=== PATIENT | female | born 1980 | race Caucasian/White ===

== ENCOUNTER 2016-11-22 01:53 | Emergency (ER) | payer MEDICARE ==
[2012-03-10 01:10] VITALS: BMI 24.6
== END 2016-11-22 02:45 | disposition home or self-care (01) ==
LOC: D.ER 01:53
DX: L02.31 Cutaneous abscess of buttock (principal)

== ENCOUNTER 2017-02-23 15:48 | Emergency (ER) | payer MEDICARE ==
[2012-03-10 01:10] VITALS: BMI 24.6
== END 2017-02-23 16:08 | disposition home or self-care (01) ==
LOC: D.ER 15:48
DX: K12.0 Recurrent oral aphthae (principal); F17.200 Nicotine dependence, unspecified, uncomplicated

== ENCOUNTER 2017-04-26 14:40 | Emergency (ER) | payer MEDICARE ==
[2012-03-10 01:10] VITALS: BMI 24.6
== END 2017-04-26 15:43 | disposition home or self-care (01) ==
LOC: D.ER 14:40
DX: J06.9 Acute upper respiratory infection, unspecified (principal); R59.1 Generalized enlarged lymph nodes; F17.200 Nicotine dependence, unspecified, uncomplicated

== ENCOUNTER 2017-05-25 02:08 | Emergency (ER) | payer MEDICARE ==
[2012-03-10 01:10] VITALS: BMI 24.6
[2017-05-25 03:03] LABS: BASOPHILS 0.3 % (0-2); EOSINOPHILS 1.6 % (0-7); HEMATOCRIT 37.6 % (36.0-48.0); HEMOGLOBIN 12.8 g/dL (12-16); LYMPHOCYTES 31.8 % (15-50); MCH 30.8 pg (26.0-34.0); MCV 90.4 fL (80.0-100.0); MEAN PLATELET VOLUME 10.4 fL (7.4-10.4); MONOCYTES 9.7 % (2-11); NEUTROPHILS 56.6 % (40-80); PLATELET COUNT 275 10x3/uL (130-400); RBC 4.16 10x6/uL (4.00-5.40); RDW 13.5 % (11.5-14.5); WBC 6.7 10x3/uL (4.8-10.8)
[2017-05-25 03:17] LABS: ALBUMIN 4.2 g/dL (3.4-5.0); ALKALINE PHOSPHATASE 90 U/L (46-116); ALT (SGPT) 57 U/L (10-68); CALC OSMOLALITY 279 mosm/kg (275-300); CALCIUM 9.5 mg/dL (8.5-10.1); CARBON DIOXIDE 27.9 mmol/L (21.0-32.0); CHLORIDE - SERUM 100 mmol/L (98-107); CREATININE - SERUM 0.8 mg/dL (0.6-1.3); GLUCOSE 83 mg/dL (74-106); POTASSIUM - SERUM 3.6 mmol/L (3.5-5.1); PROTEIN - SERUM 7.7 g/dL (6.4-8.2); SODIUM 139 mmol/L (136-145); UREA NITROGEN 21 mg/dL (7-18); eGFR NON AFRICAN AMERICAN 86 mL/min (90-120)
== END 2017-05-25 06:21 | disposition home or self-care (01) ==
LOC: D.ER 02:08
PROVIDERS: Emergency Medicine
DX: G43.909 Migraine, unspecified, not intractable, without status migrainosus (principal); F17.200 Nicotine dependence, unspecified, uncomplicated

== ENCOUNTER 2017-05-28 11:03 | Emergency (ER) | payer MEDICARE ==
[2012-03-10 01:10] VITALS: BMI 24.6
[2017-05-28 12:09] LABS: BASOPHILS 0.3 % (0-2); EOSINOPHILS 1.5 % (0-7); HEMATOCRIT 36.7 % (36.0-48.0); HEMOGLOBIN 12.2 g/dL (12-16); IMMATURE GRANULOCYTES 0.2 % (0-5); LYMPHOCYTES 32.5 % (15-50); MCH 30.9 pg (26.0-34.0); MCHC 33.2 g/dL (31.0-37.0); MCV 92.9 fL (80.0-100.0); MEAN PLATELET VOLUME 10.2 fL (7.4-10.4); MONOCYTES 7.4 % (2-11); NEUTROPHILS 58.1 % (40-80); PLATELET COUNT 245 10x3/uL (130-400); RBC 3.95 10x6/uL (4.00-5.40); RDW 13.8 % (11.5-14.5); WBC 6.1 10x3/uL (4.8-10.8)
[2017-05-28 12:22] LABS: ALBUMIN 3.8 g/dL (3.4-5.0); ALKALINE PHOSPHATASE 104 U/L (46-116); ALT (SGPT) 49 U/L (10-68); BILIRUBIN - TOTAL 0.13 mg/dL (0.2-1.3); CALC OSMOLALITY 288 mosm/kg (275-300); CALCIUM 8.7 mg/dL (8.5-10.1); CARBON DIOXIDE 28.2 mmol/L (21.0-32.0); CHLORIDE - SERUM 109 mmol/L (98-107); CREATININE - SERUM 0.7 mg/dL (0.6-1.3); GLUCOSE 95 mg/dL (74-106); POTASSIUM - SERUM 3.2 mmol/L (3.5-5.1); PROTEIN - SERUM 7.2 g/dL (6.4-8.2); SODIUM 145 mmol/L (136-145); UREA NITROGEN 13 mg/dL (7-18); eGFR NON AFRICAN AMERICAN > 90 mL/min (90-120)
== END 2017-05-28 13:30 | disposition home or self-care (01) ==
LOC: D.ER 11:03
PROVIDERS: Family Medicine
DX: R51 Headache (principal)

== ENCOUNTER 2017-06-11 09:02 | Emergency (ER) | payer MEDICARE ==
[2012-03-10 01:10] VITALS: BMI 24.6
== END 2017-06-11 10:03 | disposition home or self-care (01) ==
LOC: D.ER 09:02
DX: K02.9 Dental caries, unspecified (principal); K08.89 Other specified disorders of teeth and supporting structures; F17.200 Nicotine dependence, unspecified, uncomplicated

== ENCOUNTER 2017-09-17 19:58 | Emergency (ER) | payer MEDICARE ==
[2012-03-10 01:10] VITALS: BMI 24.6
== END 2017-09-17 22:05 | disposition home or self-care (01) ==
LOC: D.ER 19:58
DX: J20.9 Acute bronchitis, unspecified (principal); J01.90 Acute sinusitis, unspecified; B00.1 Herpesviral vesicular dermatitis; F17.200 Nicotine dependence, unspecified, uncomplicated

== ENCOUNTER 2017-09-21 19:25 | Emergency (ER) | payer MEDICARE ==
[2012-03-10 01:10] VITALS: BMI 24.6
[2017-09-21 20:13] LABS: APPEARANCE CLEAR (CLEAR); BILIRUBIN NEGATIVE (NEGATIVE); COLOR YELLOW (YELLOW); GLUCOSE NEGATIVE (NEGATIVE); KETONE NEGATIVE (NEGATIVE); NITRITE NEGATIVE (NEGATIVE); PROTEIN NEGATIVE (NEGATIVE); SPECIFIC GRAVITY 1.015 (1.005-1.020); UROBILINOGEN NORMAL (NORMAL)
[2017-09-21 20:19] LABS: UDS - AMPHET NEGATIVE QUAL (NEGATIVE); UDS - BARB NEGATIVE QUAL (NEGATIVE); UDS - BENZO NEGATIVE QUAL (NEGATIVE); UDS - COCAINE NEGATIVE QUAL (NEGATIVE); UDS - OPIATE POSITIVE QUAL (NEGATIVE); UDS - PCP NEGATIVE QUAL (NEGATIVE); UDS - THC NEGATIVE QUAL (NEGATIVE)
[2017-09-21 20:36] LABS: BASOPHILS 0.2 % (0-2); HEMATOCRIT 36.2 % (36.0-48.0); HEMOGLOBIN 12.2 g/dL (12-16); IMMATURE GRANULOCYTES 0.1 % (0-5); LYMPHOCYTES 26.1 % (15-50); MCH 29.8 pg (26.0-34.0); MCHC 33.7 g/dL (31.0-37.0); MCV 88.3 fL (80.0-100.0); MEAN PLATELET VOLUME 10.1 fL (7.4-10.4); MONOCYTES 6.8 % (2-11); NEUTROPHILS 65.8 % (40-80); PLATELET COUNT 283 10x3/uL (130-400); RDW 14.2 % (11.5-14.5); WBC 9.9 10x3/uL (4.8-10.8)
[2017-09-21 21:26] LABS: HCG SERUM NEGATIVE (NEGATIVE)
[2017-09-21 21:30] LABS: ALBUMIN 3.9 g/dL (3.4-5.0); ALKALINE PHOSPHATASE 114 U/L (46-116); ALT (SGPT) 44 U/L (10-68); CALC OSMOLALITY 280 mosm/kg (275-300); CALCIUM 9.6 mg/dL (8.5-10.1); CARBON DIOXIDE 25.4 mmol/L (21.0-32.0); CHLORIDE - SERUM 106 mmol/L (98-107); CREATININE - SERUM 0.8 mg/dL (0.6-1.3); GLUCOSE 92 mg/dL (74-106); POTASSIUM - SERUM 3.9 mmol/L (3.5-5.1); PROTEIN - SERUM 7.9 g/dL (6.4-8.2); SODIUM 141 mmol/L (136-145); UREA NITROGEN 12 mg/dL (7-18); eGFR NON AFRICAN AMERICAN 86 mL/min (90-120)
== END 2017-09-21 22:30 | disposition home or self-care (01) ==
LOC: D.ER 19:25
PROVIDERS: Family Medicine
DX: J20.9 Acute bronchitis, unspecified (principal); B00.1 Herpesviral vesicular dermatitis; R59.1 Generalized enlarged lymph nodes; F17.200 Nicotine dependence, unspecified, uncomplicated

== ENCOUNTER 2018-12-19 01:02 | Emergency (ER) | payer MEDICARE ==
[~2018-12-19] VITALS: Ht 154.9 cm; Wt 73.6 kg
[2018-12-19 01:08] VITALS: Ht 154.9 cm; Wt 73.6 kg
[2018-12-19] MEDS ORDERED: TYLENOL W/CODEI1 TAB PO (01:49)
[2018-12-19] MEDS ORDERED: CLEOCIN HCL300 MG PO (01:49)
[2018-12-19 02:02] VITALS: BP 114/80
== END 2018-12-19 01:55 | disposition home or self-care (01) ==
LOC: D.ER 01:02
DX: K02.9 Dental caries, unspecified (principal); L73.9 Follicular disorder, unspecified; K05.10 Chronic gingivitis, plaque induced

== ENCOUNTER 2019-01-02 00:48 | Emergency (ER) | payer MEDICARE ==
[~2019-01-02] VITALS: Ht 154.9 cm; Wt 75.0 kg
[~2019-01-02 00:48] MED LIST: CLEOCIN HCL300 MG PO; TYLENOL W/CODEI1 TAB PO
[2019-01-02 01:05] VITALS: Ht 154.9 cm; Wt 75.0 kg
[2019-01-02] MEDS ORDERED: NAPROSYN500 MG PO (02:04)
[2019-01-02] MEDS ORDERED: AUGMENTIN 875-11 TAB PO (02:04)
[2019-01-02 02:10] VITALS: BP 119/88
== END 2019-01-02 02:18 | disposition home or self-care (01) ==
LOC: D.ER 00:48
DX: K04.7 Periapical abscess without sinus (principal)

== ENCOUNTER 2019-05-12 17:59 | Emergency (ER) | payer MEDICARE, MEDICAID ==
[~2019-05-12] VITALS: Ht 154.9 cm; Wt 66.4 kg
[~2019-05-12 17:59] MED LIST changes: +AUGMENTIN 875-11 TAB PO; +NAPROSYN500 MG PO
[2019-05-12 18:06] VITALS: Ht 154.9 cm; Wt 66.4 kg
[2019-05-12 20:35] VITALS: BP 110/69
== END 2019-05-12 20:35 | disposition home or self-care (01) ==
LOC: D.ER 17:59
DX: S69.91XA Unspecified injury of right wrist, hand and finger(s), initial encounter (principal); W19.XXXA Unspecified fall, initial encounter; Y93.9 Activity, unspecified; Y92.9 Unspecified place or not applicable; M25.531 Pain in right wrist; G35 Multiple sclerosis

== ENCOUNTER 2019-12-08 12:49 | Emergency (ER) | payer MEDICARE, MEDICAID ==
[~2019-12-08] VITALS: Ht 154.9 cm; Wt 63.6 kg
[2019-12-08 12:56] VITALS: Ht 154.9 cm; Wt 63.6 kg
[2019-12-08] MEDS ORDERED: CYCLOBENZAPRINE10 MG PO (14:05)
[2019-12-08 15:49] VITALS: BP 123/78
== END 2019-12-08 15:49 | disposition home or self-care (01) ==
LOC: D.ER 12:49
DX: M54.5 Low back pain (principal); V89.2XXA Person injured in unspecified motor-vehicle accident, traffic, initial encounter; Y93.9 Activity, unspecified; Y92.9 Unspecified place or not applicable; G35 Multiple sclerosis

== ENCOUNTER 2020-02-29 19:16 | Emergency (ER) | payer MEDICARE, MEDICAID ==
[~2020-02-29] VITALS: Ht 154.9 cm; Wt 63.5 kg
[~2020-02-29 19:16] MED LIST changes: +CYCLOBENZAPRINE10 MG PO
[2020-02-29 19:21] VITALS: Ht 154.9 cm; Wt 63.5 kg
[2020-02-29] MEDS ORDERED: KEFLEX500 MG PO (19:55)
[2020-02-29] MEDS ORDERED: CIPRO500 MG PO (19:55)
[2020-02-29] MEDS ORDERED: HYDROCODON-ACE1 EAC7 PO (19:59)
[2020-02-29 20:16] VITALS: BP 126/65
== END 2020-02-29 20:16 | disposition home or self-care (01) ==
LOC: D.ER 19:16
DX: S91.331A Puncture wound without foreign body, right foot, initial encounter (principal); M79.671 Pain in right foot; W22.8XXA Striking against or struck by other objects, initial encounter; Y93.9 Activity, unspecified; Y92.9 Unspecified place or not applicable